=== PATIENT | female | born 1955 | race Caucasian/White ===

== ENCOUNTER 2018-09-17 11:00 | Emergency (ER) | payer OTHER ==
[~2018-09-17] VITALS: Ht 157.5 cm; Wt 77.1 kg
[~2018-09-17 11:00] MED LIST: ACET500; AMOCLA875 PO; AMOX500 PO; ASCO1ER PO; ASCO500 PO; ASPI325; ASPI325EC PO; ATEN25 PO; AZIT250 PO; CALC1.25T PO; CALCAVITDA PO; CIPR500 PO; CYCL10 PO; DIAZ10; DIAZ5 PO; FISH OIL; FISH1000 PO; HYDCHLSU PO; IBUP800; INDO50 PO; LEVSOD100 PO; LEVSOD150 PO; LEVSOD200; LEVSOD200 PO; LISI20 PO; MARIJUANA; METH40; METH40 PO; MULVITA PO; NAPR375 PO; OXYACE5T PO; OXYACE7.5T PO; RXCLIN PO; SULTRIDS PO; Synthroid200 MCG PO; TOCO400 PO; TRAM50; Tenormin25 MG PO; VITAMIN E; VITB100 PO; VITS/SUPPS
[2018-09-17 11:56] LABS: BASOPHILS ABSOLUTE AUTO 0.05 K/mm3 (0.00-0.23); BASOPHILS PERCENT AUTO 0 % (0-2); EOSINOPHILS ABSOLUTE AUTO 0.46 K/mm3 (0.00-0.68); EOSINOPHILS PERCENT AUTO 4 % (0-6); Hematocrit 44.3 % (33.0-51.0); Hemoglobin 14.3 g/dL (11.5-16.0); IMMATURE GRAN ABSOLUTE AUTO 0.03 K/mm3 (0.00-0.10); IMMATURE GRAN PERCENT AUTO 0 % (0-1); LYMPHOCYTES ABSOLUTE AUTO 4.22 K/mm3 (0.84-5.20); LYMPHOCYTES PERCENT AUTO 33 % (21-46); MONOCYTES ABSOLUTE AUTO 0.81 K/mm3 (0.16-1.47); MONOCYTES PERCENT AUTO 6 % (4-13); Mean Corpuscular HGB Conc 32.3 g/dL (31.5-36.5); Mean Corpuscular Volume 90 fL (80-100); NEUTROPHILS ABSOLUTE AUTO 7.07 K/mm3 (1.96-9.15); NEUTROPHILS PERCENT AUTO 56 % (41-73); Platelet Count 330 K/mm3 (150-400); RDW Coefficient Variation 13.5 % (11.7-14.2); Red Blood Cell Count 4.93 M/mm3 (3.80-5.20); White Blood Cell Count 12.64 K/mm3 (4.00-11.30)
[2018-09-17 12:26] LABS: Alanine Aminotransfer (ALT/SGP 23 U/L (12-78); Albumin, Blood 3.5 g/dL (3.4-5.0); Albumin/Globulin Ratio 0.8 (0.8-1.8); Alk Phos 106 U/L (50-136); Anion Gap 7 mmol/L (6-16); Aspartate Aminotrans (AST/SGOT 34 U/L (12-37); Bilirubin, Total 0.3 mg/dL (0.1-1.0); Blood Urea Nitrogen 7 mg/dL (8-24); Bun/Creatinine Ratio 12.4 (12.0-20.0); CO2, Blood 25 mmol/L (21-32); Calcium, Blood 8.4 mg/dL (8.5-10.1); Chloride, Blood 108 mmol/L (98-108); Creatinine, Blood 0.56 mg/dL (0.40-1.00); Globulin, Blood 4.5 g/dL (2.2-4.0); Glomerular Filtration Rate >60 (60-); Glucose, Blood 90 mg/dL (70-99); Magnesium, Blood 1.9 mg/dL (1.6-2.4); Potassium, Blood 4.2 mmol/L (3.5-5.5); Sodium, Blood 140 mmol/L (136-145)
[2018-09-17 12:28] LABS: Troponin I <0.015 ng/mL (0.000-0.040)
[2018-09-17 12:38] LABS: Free Thyroxine 0.75 ng/dL (0.70-1.60)
[2018-09-17 12:40] LABS: Thyroid Stimulating Hormone 3.24 uIU/mL (0.360-4.800); Triiodothyronine, Free 1.35 pg/mL (2.18-3.98)
[2018-09-17] MEDS ORDERED: LEVSOD100 PO (13:50)
[2018-09-17] MEDS ORDERED: HYDCHL25 PO (13:50)
[2018-09-17] MEDS ORDERED: ALBU90OI INH (14:20)
[2018-09-17] MEDS ORDERED: Synthroid100 MCG PO (14:20)
[2018-09-17] MEDS ORDERED: LISI20 PO (14:20)
[2018-09-17] MEDS ORDERED: Hydrochlorothia25 MG PO (14:20)
== END 2018-09-17 15:03 | disposition home or self-care (01) ==
LOC: ER 11:00
PROVIDERS: Physician Assistant
DX: R00.2 Palpitations (principal); Z76.0 Encounter for issue of repeat prescription; E03.9 Hypothyroidism, unspecified; J44.9 Chronic obstructive pulmonary disease, unspecified; F17.200 Nicotine dependence, unspecified, uncomplicated; Z95.1 Presence of aortocoronary bypass graft; Z88.5 Allergy status to narcotic agent; Z88.1 Allergy status to other antibiotic agents; Z88.6 Allergy status to analgesic agent; Z79.899 Other long term (current) drug therapy
CPT/HCPCS: 36415; 80053; 83735; 83880; 84439; 84443; 84481; 84484; 85025; 93005; 93010; 99284-25

== ENCOUNTER 2020-05-03 10:40 | Emergency (ER) | payer SELFPAY ==
[~2020-05-03] VITALS: Ht 160 cm; Wt 65.8 kg
[~2020-05-03 10:40] MED LIST changes: +ALBU90OI INH; +Bactrim Ds Tab1 EACH PO; +HYDCHL25 PO; +Hydrochlorothia25 MG PO; +Synthroid100 MCG PO
[2020-05-03] MEDS ORDERED: Synthroid/Levo0.2 MG PO (10:59)
[2020-05-03 11:21] LABS: Source, Urine Voided
[2020-05-03 11:27] LABS: Appearance, Urine Hazy (Clear); Blood, Urine 2+ (Neg); Color, Urine Amber (P-Yellow); Glucose Qualitative, Urine Neg (Neg); Ketones, Urine 1+ (Neg); Leukocyte Esterase, Urine 2+ (Neg); Nitrite, Urine Neg (Neg); Protein, Urine 2+ (Neg); Specific Gravity, Urine 1.025 (1.003-1.022); Urobilinogen, Urine 2+ (Normal)
[2020-05-03 11:34] LABS: Bilirubin, Urine 1+ (Neg)
[2020-05-03 11:37] LABS: Bacteria Many /hpf; Squamous Epithelial Cells Many /hpf (Few)
[2020-05-03 11:38] LABS: Amorphous Light (0-Heavy); Mucus Light (0-Heavy)
[2020-05-03 12:05] LABS: Hematocrit 43.9 % (33.0-51.0); Hemoglobin 14.4 g/dL (11.5-16.0); Mean Corpuscular HGB 28.4 pg (26.0-34.0); Mean Corpuscular HGB Conc 32.8 g/dL (31.5-36.5); Mean Corpuscular Volume 87 fL (80-100); RDW Coefficient Variation 13.7 % (11.7-14.2); RDW Standard Deviation 43.7 fL (35.1-46.3); Red Blood Cell Count 5.07 M/mm3 (3.80-5.20); White Blood Cell Count 12.55 K/mm3 (4.00-11.30)
[2020-05-03 12:06] LABS: Mean Platelet Volume 11.3 fL (9.1-12.4)
[2020-05-03 12:19] LABS: Alanine Aminotransfer (ALT/SGP 31 U/L (12-78); Albumin, Blood 3.5 g/dL (3.4-5.0); Albumin/Globulin Ratio 0.8 (0.8-1.8); Alk Phos 77 U/L (50-136); Anion Gap 7 mmol/L (6-16); Aspartate Aminotrans (AST/SGOT 25 U/L (12-37); Bilirubin, Total 0.3 mg/dL (0.1-1.0); Blood Urea Nitrogen 13 mg/dL (8-24); Bun/Creatinine Ratio 18.2 (12.0-20.0); CO2, Blood 27 mmol/L (21-32); Calcium, Blood 9.3 mg/dL (8.5-10.1); Chloride, Blood 106 mmol/L (98-108); Creatinine, Blood 0.72 mg/dL (0.40-1.00); Globulin, Blood 4.3 g/dL (2.2-4.0); Glomerular Filtration Rate >60 (60-); Glucose, Blood 78 mg/dL (70-99); Potassium, Blood 4.1 mmol/L (3.5-5.5); Sodium, Blood 140 mmol/L (136-145); Total Protein, Blood 7.8 g/dL (6.4-8.2)
[2020-05-03 13:27] LABS: BASOPHILS PERCENT MAN 0 % (0-2); EOSINOPHILS ABSOLUTE MAN 0.25 K/mm3 (0.00-0.68); EOSINOPHILS PERCENT MAN 2 % (0-6); LYMPHOCYTES ABSOLUTE MAN 7.02 K/mm3 (0.84-5.20); LYMPHOCYTES PERCENT MAN 56 % (21-46); MONOCYTES ABSOLUTE MAN 1.12 K/mm3 (0.16-1.47); MONOCYTES PERCENT MAN 9 % (4-13); NEUTROPHILS ABSOLUTE MAN 4.14 K/mm3 (1.96-9.15); SEG NEUTROPHILS PERCENT MAN 33 % (41-73); TOTAL CELLS COUNTED 100
[2020-05-03 13:30] LABS: Platelet Count 146 K/mm3 (150-400)
[2020-05-03] MEDS ORDERED: BACTRIM DS TAB1 EAC2 PO (13:48)
== END 2020-05-03 14:18 | disposition home or self-care (01) ==
LOC: ER 10:40
PROVIDERS: Emergency Medicine
DX: N12 Tubulo-interstitial nephritis, not specified as acute or chronic (principal); E03.9 Hypothyroidism, unspecified; J44.9 Chronic obstructive pulmonary disease, unspecified; I25.2 Old myocardial infarction; I25.10 Atherosclerotic heart disease of native coronary artery without angina pectoris; Z88.5 Allergy status to narcotic agent; Z88.1 Allergy status to other antibiotic agents; Z79.899 Other long term (current) drug therapy
CPT/HCPCS: 36415; 74176; 80053; 81001; 83690; 85025; 87086; 96372-59; 96374; 99284-25; J0696; J1885

== ENCOUNTER 2023-11-05 13:22 | Emergency (ER) | payer OTHER ==
[~2023-11-05] VITALS: Ht 144.8 cm; Wt 61.2 kg
[~2023-11-05 13:22] MED LIST changes: +BACTRIM DS TAB1 EAC2 PO; +Synthroid/Levo0.2 MG PO
[2023-11-05 14:39] LABS: BASOPHILS ABSOLUTE AUTO 0.07 K/mm3 (0.00-0.23); BASOPHILS PERCENT AUTO 1 % (0-2); EOSINOPHILS PERCENT AUTO 1 % (0-6); Hematocrit 45.1 % (33.0-51.0); Hemoglobin 14.3 g/dL (11.5-16.0); IMMATURE GRAN PERCENT AUTO 2 % (0-1); LYMPHOCYTES ABSOLUTE AUTO 2.31 K/mm3 (0.84-5.20); LYMPHOCYTES PERCENT AUTO 27 % (21-46); MONOCYTES ABSOLUTE AUTO 0.78 K/mm3 (0.16-1.47); MONOCYTES PERCENT AUTO 9 % (4-13); Mean Corpuscular HGB 28.1 pg (26.0-34.0); Mean Corpuscular HGB Conc 31.7 g/dL (31.5-36.5); Mean Corpuscular Volume 89 fL (80-100); NEUTROPHILS ABSOLUTE AUTO 5.15 K/mm3 (1.96-9.15); NEUTROPHILS PERCENT AUTO 60 % (41-73); RDW Coefficient Variation 14.6 % (11.7-14.2); RDW Standard Deviation 46.5 fL (35.1-46.3); Red Blood Cell Count 5.08 M/mm3 (3.80-5.20); White Blood Cell Count 8.61 K/mm3 (4.00-11.30)
[2023-11-05 14:44] LABS: Albumin, Blood 3.6 g/dL (3.4-5.0); Albumin/Globulin Ratio 0.7 (0.8-1.8); Bilirubin, Total 0.3 mg/dL (0.1-1.0); Bun/Creatinine Ratio 17.5 (12.0-20.0); Calcium, Blood 9.2 mg/dL (8.5-10.1); Creatinine, Blood 0.69 mg/dL (0.40-1.00); Potassium, Blood 4.4 mmol/L (3.5-5.5); Total Protein, Blood 8.6 g/dL (6.4-8.2)
[2023-11-05 15:29] LABS: Platelet Count 370 K/mm3 (150-400)
[2023-11-05] MEDS ORDERED: Ipratropium/Albuterol SulF 2.5-0.5MG/3 ML Amp INH ONE ×2 (18:05→19:00)
[2023-11-05] MEDS ORDERED: PredniSONE 20 MG Tab PO ONE (18:05)
[2023-11-05] MEDS ORDERED: Amoxicillin/Clavulanate K 875 MG Tab PO ONE (18:05)
[2023-11-05] MEDS ORDERED: Azithromycin 250 MG Tab PO ONE (18:05)
[2023-11-05] MEDS ORDERED: Ketorolac Tromethamine 30mg Vial IV ONE (18:05)
[2023-11-05] MEDS ORDERED: Levothyroxine Sodium 0.1 MG Tab PO ONE (18:10)
[2023-11-05] MEDS ORDERED: HydroCHLOROthiazide 25 mg Tab PO ONE (18:10)
[2023-11-05] MEDS ORDERED: Lisinopril 20 MG Tab PO ONE (18:10)
[2023-11-05 18:17] LABS: Free Thyroxine 0.16 ng/dL (0.70-1.60)
[2023-11-05 18:24] LABS: Triiodothyronine, Free <0.50 pg/mL (2.18-3.98)
[2023-11-05 19:16] LABS: PCO2 Venous 53.8 mmHg (38-42)
[2023-11-05 19:17] LABS: Bicarbonate Venous 29.2 mmol/L (24.0-30.0)
[2023-11-05] MEDS ORDERED: NAPR500 PO ×2 (20:10→20:11)
[2023-11-05] MEDS ORDERED: AZIT250 PO ×2 (20:10→20:11)
[2023-11-05] MEDS ORDERED: ALBU2.5V5 INH ×2 (20:10→20:11)
[2023-11-05] MEDS ORDERED: HYDCHL25 PO ×2 (20:10→20:11)
[2023-11-05] MEDS ORDERED: TRELEGY ELLIPT1 EACH INH ×2 (20:10→20:11)
[2023-11-05] MEDS ORDERED: Synthroid200 MCG PO ×2 (20:10→20:11)
[2023-11-05] MEDS ORDERED: AMOCLA875 PO ×2 (20:10→20:11)
[2023-11-05] MEDS ORDERED: LISI20 PO ×2 (20:10→20:11)
[2023-11-05] MEDS ORDERED: PRED20 PO ×2 (20:10→20:11)
[2023-11-05] MEDS ORDERED: Synthroid/Levo0.2 MG PO (20:11)
[2023-11-05 21:00] VITALS: BP 164/108
== END 2023-11-05 21:15 | disposition left against medical advice (07) ==
LOC: ER 13:22
PROVIDERS: Physician Assistant; Student in an Organized Health Care Education/Training Program
DX: J44.1 Chronic obstructive pulmonary disease with (acute) exacerbation (principal); J96.91 Respiratory failure, unspecified with hypoxia; J45.909 Unspecified asthma, uncomplicated; J18.9 Pneumonia, unspecified organism; E03.9 Hypothyroidism, unspecified; I10 Essential (primary) hypertension; M16.12 Unilateral primary osteoarthritis, left hip; Z76.0 Encounter for issue of repeat prescription; Z88.5 Allergy status to narcotic agent; Z88.1 Allergy status to other antibiotic agents; Z79.899 Other long term (current) drug therapy
CPT/HCPCS: 71046; 73502; 80053; 82803; 83690; 83880; 84145; 84439; 84443; 84481; 85025; 93005; 93010; 94640; 94664; 96374; 99285-25; A9270; J1885; J7512